=== PATIENT | male | born 1930 | race Caucasian/White ===

== ENCOUNTER → 2016-10-10 | Outpatient (CLI) | payer OTHER, MEDICARE, MEDICAID ==
[~2016-10-10] MED LIST: ATIVAN1 MG PO; B121000 MCG/1 IM; BRIN10TA PO; BRIN20TA PO; CARDIZEM SR120 MG; CENTRUM SILVER1 TA2 PO; CIPROFLOXACIN500 M4 PO; CITALOPRAM20 MG PO; DOXYCYCLINE100 M3 PO; DUONEB 3 MG/3 ML3 M1 INH; FLOMAX0.4 MG; HYDROCODONE BIT1 T11 PO; IMDUR30 MG PO; K-DUR 20MEQ20 MEQ PO; KLOR-CON M2020 ME1 PO; LASIX20 MG PO; LASIX40 MG PO; LISINOPRIL20 MG PO; LOPRESSOR25 MG PO; MEGACE400 MG/10 PO; METOPROLOL TART50 M1 PO; MOISTURIZING LU15 ML OP; PROTONIX40 MG PO; SERTRALINE100 MG; SERTRALINE50 MG PO; SODIUM BICARBO650 MG PO; SPS15 GM/60 M PO; TERAZOSIN HCL2 MG PO; TRAZODONE50 MG; VITAMIN C500 MG PO; VITAMIN D50000 I3 PO; [UNRECOGNIZED DRUG - OTHER] TP
== END ==
LOC: US 12:33
DX: N19 Unspecified kidney failure (principal); N28.1 Cyst of kidney, acquired

== ENCOUNTER 2016-12-28 12:37 | Inpatient (IN) | payer OTHER, MEDICARE, MEDICAID ==
[~2016-12-28] VITALS: Ht 187.9 cm; Wt 107.7 kg
[~2016-12-28 12:37] MED LIST changes: -FLOMAX0.4 MG; +FLOMAX0.4 MG PO
[2016-12-28 12:56] VITALS: BP 129/62
[2016-12-28 13:06] LABS: BASO % 0.2 % (0.0-1.0); EOS # 0.2 10*3/uL (0.0-0.4); EOS % 2.4 % (1.0-4.0); HEMATOCRIT 39.8 % (42.0-52.0); HEMOGLOBIN 12.6 g/dl (14.0-18.0); IG # 0.1 10*3/uL (0.0-0.1); LYMPH # 1.2 10*3/uL (1.3-4.4); LYMPH % 12.8 % (27.0-41.0); MEAN CELL VOLUME 93.9 fl (80.0-94.0); MEAN CORPUSCULAR HGB 29.7 pg (27.0-31.0); MEAN CORPUSCULAR HGB CONC 31.7 g/dl (33.0-37.0); MEAN PLATELET VOLUME 10.5 fl (9.6-12.3); MONO # 0.8 10*3/uL (0.1-1.0); MONO % 8.4 % (3.0-9.0); NEUT # 6.8 10*3/uL (2.3-7.9); NEUT % 75.2 % (47.0-73.0); PLATELET COUNT AUTOMATED 158 10*3/uL (130-400); RED BLOOD COUNT 4.24 10*6/uL (4.50-5.90); RED CELL DISTRI WIDTH 14.4 % (0-14.5)
[2016-12-28 13:14] LABS: PROTHROMBIN TIME 10.7 SECONDS (9.0-12.4)
[2016-12-28 13:21] LABS: ALKALINE PHOSPHATASE 191 U/L (45-117); BILIRUBIN, TOTAL 0.4 mg/dl (0.2-1.0); BUN 51 mg/dl (7-24); C-REACTIVE PROTEIN 3.49 MG/DL (0-0.3); CARBON DIOXIDE 22 mmol/L (21-32); CHLORIDE 109 mmol/L (98-107); CPK 21 U/L (39-308); EST GLOM FILT AFRICAN AMERICAN 22 ml/min; GLUCOSE 119 mg/dL (65-99); MAGNESIUM 2.7 mg/dL (1.5-2.1); POTASSIUM 5.2 mmol/L (3.5-5.1); SGOT/AST 12 IU/L (3-35); SGPT/ALT 15 U/L (12-78); SODIUM 141 mmol/L (136-145)
[2016-12-28 13:22] LABS: CKMB < 0.5 ng/ml (0.5-3.6); TROPONIN I < 0.015 ng/ml (<0.045)
[2016-12-28 13:53] VITALS: BP 137/89
[2016-12-28 15:03] LABS: LA>2 REFLEX 2 HR DRAW NOW
[2016-12-28 15:06] VITALS: BP 121/85
[2016-12-28 18:35] VITALS: BP 159/66
[2016-12-28 18:56] LABS: CKMB 0.6 ng/ml (0.5-3.6)
[2016-12-28 20:00] VITALS: BP 136/72
[2016-12-29] VITALS: BP 101/58; BP 128/60
[2016-12-29 06:28] LABS: BASO % 0.1 % (0.0-1.0); EOS # 0.2 10*3/uL (0.0-0.4); EOS % 2.4 % (1.0-4.0); HEMATOCRIT 38.6 % (42.0-52.0); HEMOGLOBIN 12.3 g/dl (14.0-18.0); IG # 0.1 10*3/uL (0.0-0.1); LYMPH # 0.4 10*3/uL (1.3-4.4); LYMPH % 5.3 % (27.0-41.0); MEAN CELL VOLUME 93.2 fl (80.0-94.0); MEAN CORPUSCULAR HGB 29.7 pg (27.0-31.0); MEAN CORPUSCULAR HGB CONC 31.9 g/dl (33.0-37.0); MEAN PLATELET VOLUME 10.4 fl (9.6-12.3); MONO # 0.7 10*3/uL (0.1-1.0); MONO % 8.3 % (3.0-9.0); NEUT # 6.9 10*3/uL (2.3-7.9); NEUT % 83.2 % (47.0-73.0); PLATELET COUNT AUTOMATED 137 10*3/uL (130-400); RED BLOOD COUNT 4.14 10*6/uL (4.50-5.90); RED CELL DISTRI WIDTH 14.4 % (0-14.5); WHITE BLOOD COUNT 8.3 10*3/uL (4.8-10.8)
[2016-12-29 06:38] LABS: CKMB 3.5 ng/ml (0.5-3.6)
[2016-12-29 06:39] LABS: HEMOGLOBIN A1c 5.6 % (4.8-5.6)
[2016-12-29 06:56] LABS: FREE T4 0.89 ng/dl (0.76-1.46); PHOSPHOROUS 3.1 mg/dL (2.5-4.9); POTASSIUM 5.3 mmol/L (3.5-5.1)
[2016-12-29 06:58] LABS: PROTHROMBIN TIME 11.1 SECONDS (9.0-12.4)
[2016-12-29 07:02] LABS: THYROID STIM HORMONE (HS) 1.38 uIU/ml (0.358-4.75)
[2016-12-29 07:20] LABS: FOLIC ACID 18.92 ng/mL (>5.38); VITAMIN D, 25-HYDROXY 37.2 ng/mL (30-100)
[2016-12-29 08:00] VITALS: BP 152/86
[2016-12-29 12:00] VITALS: BP 145/71
[2016-12-29 13:27] LABS: BILIRUBIN NEGATIVE (NEGATIVE); BLOOD 1+ (NEGATIVE); CLARITY CLEAR (CLEAR); COLOR YELLOW (YELLOW); GLUCOSE NEGATIVE (NEGATIVE); KETONE NEGATIVE (NEGATIVE); LEUKO ESTERASE NEGATIVE (NEGATIVE); NITRITE NEGATIVE (NEGATIVE); PH 6.5 (5.0-9.0); PROTEIN NEGATIVE (NEGATIVE); SPECIFIC GRAVITY <= 1.005 (1.005-1.030); UROBILINOGEN 0.2 E.U./dl (0.2-1.0)
[2016-12-29 13:50] LABS: BACTERIA 2+
[2016-12-29] MEDS ORDERED: K-TAB20 MEQ PO (14:33)
[2016-12-29] MEDS ORDERED: LASIX40 MG PO (14:34)
[2016-12-29] MEDS ORDERED: SERTRALINE HYD100 MG PO (14:37)
[2016-12-29] MEDS ORDERED: WELLBUTRIN SR100 MG PO (14:38)
[2016-12-29 16:00] VITALS: BP 142/72
[2016-12-29 20:47] VITALS: BP 154/62
[2016-12-30] VITALS: BP 162/79
[2016-12-30 07:05] LABS: BASO % 0.3 % (0.0-1.0); EOS # 0.2 10*3/uL (0.0-0.4); EOS % 3.1 % (1.0-4.0); HEMATOCRIT 36.5 % (42.0-52.0); HEMOGLOBIN 11.7 g/dl (14.0-18.0); IG # 0.1 10*3/uL (0.0-0.1); LYMPH # 0.6 10*3/uL (1.3-4.4); LYMPH % 7.9 % (27.0-41.0); MEAN CELL VOLUME 91.7 fl (80.0-94.0); MEAN CORPUSCULAR HGB 29.4 pg (27.0-31.0); MEAN CORPUSCULAR HGB CONC 32.1 g/dl (33.0-37.0); MEAN PLATELET VOLUME 10.4 fl (9.6-12.3); MONO # 0.7 10*3/uL (0.1-1.0); MONO % 8.9 % (3.0-9.0); NEUT # 6.1 10*3/uL (2.3-7.9); NEUT % 78.9 % (47.0-73.0); PLATELET COUNT AUTOMATED 129 10*3/uL (130-400); RED BLOOD COUNT 3.98 10*6/uL (4.50-5.90); RED CELL DISTRI WIDTH 14.3 % (0-14.5); WHITE BLOOD COUNT 7.7 10*3/uL (4.8-10.8)
[2016-12-30 07:28] LABS: ALBUMIN 2.6 gm/dl (3.1-4.5); MAGNESIUM 2.1 mg/dL (1.5-2.1); PHOSPHOROUS 2.8 mg/dL (2.5-4.9)
[2016-12-30 08:00] VITALS: BP 142/59
[2016-12-30 12:00] VITALS: BP 158/92
[2016-12-30 16:00] VITALS: BP 160/79
[2016-12-30 20:00] VITALS: BP 129/67
[2016-12-31] VITALS: BP 110/45; BP 122/68
[2016-12-31 06:00] LABS: BASO % 0.1 % (0.0-1.0); EOS # 0.4 10*3/uL (0.0-0.4); EOS % 4.7 % (1.0-4.0); HEMATOCRIT 37.9 % (42.0-52.0); IG # 0.1 10*3/uL (0.0-0.1); LYMPH # 0.7 10*3/uL (1.3-4.4); LYMPH % 8.3 % (27.0-41.0); MEAN CELL VOLUME 94.5 fl (80.0-94.0); MEAN CORPUSCULAR HGB 29.9 pg (27.0-31.0); MEAN CORPUSCULAR HGB CONC 31.7 g/dl (33.0-37.0); MEAN PLATELET VOLUME 10.6 fl (9.6-12.3); MONO # 0.8 10*3/uL (0.1-1.0); MONO % 9.6 % (3.0-9.0); NEUT % 76.3 % (47.0-73.0); PLATELET COUNT AUTOMATED 144 10*3/uL (130-400); RED BLOOD COUNT 4.01 10*6/uL (4.50-5.90); RED CELL DISTRI WIDTH 14.2 % (0-14.5); WHITE BLOOD COUNT 7.8 10*3/uL (4.8-10.8)
[2016-12-31 06:26] LABS: ALBUMIN 2.4 gm/dl (3.1-4.5); MAGNESIUM 2.1 mg/dL (1.5-2.1); PHOSPHOROUS 2.9 mg/dL (2.5-4.9); POTASSIUM 5.2 mmol/L (3.5-5.1)
[2016-12-31 08:00] VITALS: BP 166/72
[2016-12-31 12:00] VITALS: BP 156/78
[2016-12-31 16:00] VITALS: BP 117/61
[2016-12-31 20:00] VITALS: BP 121/56
[2017-01-01] VITALS: BP 151/64
[2017-01-01 06:25] LABS: BASO % 0.2 % (0.0-1.0); EOS # 0.4 10*3/uL (0.0-0.4); EOS % 4.2 % (1.0-4.0); HEMATOCRIT 38.6 % (42.0-52.0); HEMOGLOBIN 12.2 g/dl (14.0-18.0); IG # 0.1 10*3/uL (0.0-0.1); LYMPH % 9.8 % (27.0-41.0); MEAN CELL VOLUME 92.6 fl (80.0-94.0); MEAN CORPUSCULAR HGB 29.3 pg (27.0-31.0); MEAN CORPUSCULAR HGB CONC 31.6 g/dl (33.0-37.0); MEAN PLATELET VOLUME 10.7 fl (9.6-12.3); MONO % 10.1 % (3.0-9.0); NEUT # 7.5 10*3/uL (2.3-7.9); NEUT % 74.7 % (47.0-73.0); PLATELET COUNT AUTOMATED 160 10*3/uL (130-400); RED BLOOD COUNT 4.17 10*6/uL (4.50-5.90); RED CELL DISTRI WIDTH 14.2 % (0-14.5)
[2017-01-01 06:55] LABS: ALBUMIN 2.5 gm/dl (3.1-4.5); MAGNESIUM 2.1 mg/dL (1.5-2.1); PHOSPHOROUS 2.8 mg/dL (2.5-4.9)
[2017-01-01 07:07] LABS: POTASSIUM 4.3 mmol/L (3.5-5.1)
[2017-01-01 08:20] VITALS: BP 164/82
[2017-01-01 12:08] VITALS: BP 141/88
[2017-01-01 16:00] VITALS: BP 163/69
[2017-01-01 20:00] VITALS: BP 150/76
[2017-01-02] VITALS: BP 139/70
[2017-01-02 06:46] LABS: BASO % 0.4 % (0.0-1.0); EOS # 0.2 10*3/uL (0.0-0.4); EOS % 2.1 % (1.0-4.0); HEMATOCRIT 39.7 % (42.0-52.0); HEMOGLOBIN 12.7 g/dl (14.0-18.0); IG # 0.1 10*3/uL (0.0-0.1); LYMPH # 0.7 10*3/uL (1.3-4.4); LYMPH % 6.5 % (27.0-41.0); MEAN CELL VOLUME 92.5 fl (80.0-94.0); MEAN CORPUSCULAR HGB 29.6 pg (27.0-31.0); MEAN PLATELET VOLUME 10.6 fl (9.6-12.3); MONO % 9.4 % (3.0-9.0); NEUT # 8.3 10*3/uL (2.3-7.9); NEUT % 80.6 % (47.0-73.0); PLATELET COUNT AUTOMATED 161 10*3/uL (130-400); RED BLOOD COUNT 4.29 10*6/uL (4.50-5.90); WHITE BLOOD COUNT 10.3 10*3/uL (4.8-10.8)
[2017-01-02 06:59] LABS: POTASSIUM 4.8 mmol/L (3.5-5.1)
[2017-01-02 08:00] VITALS: BP 170/76
[2017-01-02 12:00] VITALS: BP 149/64
[2017-01-02 12:32] LABS: VITAMIN D, 25-HYDROXY 30.3 ng/mL (30-100)
[2017-01-02 15:11] LABS: ABG BASE EXCESS -2.2 mmol/L (-2.0-2.0); ABG CO2 CONTENT 23.4 mmol/L (23-27); ABG HCO3 22.2 mmol/l (22-26); ABG TEMPERATURE 97.6 F (98.0-99.0); ARTERIAL BLOOD GAS PH 7.38 (7.35-7.45); ARTERIAL BLOOD GAS PO2 80.6 mmHg (80-90)
[2017-01-02 16:00] VITALS: BP 128/75
[2017-01-02 20:00] VITALS: BP 140/60
[2017-01-03] VITALS: BP 128/62
[2017-01-03 08:00] VITALS: BP 142/56
[2017-01-03 12:00] VITALS: BP 140/68
[2017-01-03 16:00] VITALS: BP 144/66
[2017-01-03 20:00] VITALS: BP 140/60
[2017-01-04] VITALS: BP 122/78
[2017-01-04 07:07] LABS: ALBUMIN 2.4 gm/dl (3.1-4.5); BILIRUBIN, TOTAL 0.3 mg/dl (0.2-1.0); MAGNESIUM 2.5 mg/dL (1.5-2.1); PHOSPHOROUS 3.6 mg/dL (2.5-4.9); TOTAL PROTEIN 7.3 gm/dL (6.4-8.2)
[2017-01-04 08:00] VITALS: BP 122/52
[2017-01-04] MEDS ORDERED: LEVAQUIN750 M1 PO (10:58)
[2017-01-04 12:00] VITALS: BP 127/76
== END 2017-01-04 17:26 | disposition home health service (06) | DRG 682 ==
LOC: ED 12:37 → 5E 15:16 → EDHOLD 15:16 → 5E 15:22
PROVIDERS: Emergency Medicine; Family Medicine; Internal Medicine; Internal Medicine Nephrology; Psychiatry & Neurology Psychiatry
DX: N17.0 Acute kidney failure with tubular necrosis (principal); E43 Unspecified severe protein-calorie malnutrition; G93.40 Encephalopathy, unspecified; E87.2 Acidosis; E87.0 Hyperosmolality and hypernatremia; D69.6 Thrombocytopenia, unspecified; I13.0 Hypertensive heart and chronic kidney disease with heart failure and stage 1 through stage 4 chronic kidney disease, or unspecified chronic kidney disease; I50.32 Chronic diastolic (congestive) heart failure; L03.116 Cellulitis of left lower limb; L03.115 Cellulitis of right lower limb; D47.2 Monoclonal gammopathy; N18.4 Chronic kidney disease, stage 4 (severe); F41.9 Anxiety disorder, unspecified; H54.0 Blindness, both eyes; I77.9 Disorder of arteries and arterioles, unspecified; N28.1 Cyst of kidney, acquired; H70.90 Unspecified mastoiditis, unspecified ear; F32.9 Major depressive disorder, single episode, unspecified; E87.5 Hyperkalemia; E83.41 Hypermagnesemia; D63.1 Anemia in chronic kidney disease; I73.9 Peripheral vascular disease, unspecified; E87.8 Other disorders of electrolyte and fluid balance, not elsewhere classified; E66.09 Other obesity due to excess calories; Z68.38 Body mass index [BMI] 38.0-38.9, adult; Z87.891 Personal history of nicotine dependence; Z88.0 Allergy status to penicillin; Z83.6 Family history of other diseases of the respiratory system; Z82.49 Family history of ischemic heart disease and other diseases of the circulatory system; N40.0 Benign prostatic hyperplasia without lower urinary tract symptoms; Z98.890 Other specified postprocedural states

== ENCOUNTER 2017-01-04 15:40 | Inpatient (IN) | payer OTHER, MEDICARE, MEDICAID ==
[~2017-01-04] VITALS: Ht 187.9 cm; Wt 112.5 kg
--- NOTE | ~2017-01-04 | PR ---
[place], [place] PROGRESS NOTE NAME: CHIKI MARR UNIT #: [id number] ROOM: 317 DOCTOR: ALY MURGUIA DPM BIRTHDATE: [birth year] DOS: 01/10/2017 SUBJECTIVE: The patient was seen for followup of ulcerations dorsal bilateral foot and medial right leg. OBJECTIVE: The ulcerations are showing signs of improvement. No signs of infection or complication, much improved since Monday. ASSESSMENT: Venous insufficiency, ulcerations of the right medial leg, ulcerations dorsal bilateral foot. PLAN: Evaluation and management. Continue local wound care and we will reassess next week. ALY MURGUIA DPM CM:JOON 1213 01 ALY MURGUIA DPM 01/10/172301 interface
--- NOTE | ~2017-01-04 | PR ---
[place], [place] PROGRESS NOTE NAME: CHIKI MARR UNIT #: [id number] ROOM: 317 DOCTOR: CHIKI BRIONES MD BIRTHDATE: [birth year] DOS: 01/08/2017 CHIEF COMPLAINT: "My back really hurts; the pain is just unbearable at times." SUMMARY OF THE VISIT: The patient was interviewed in the dining area where he sat finishing his breakfast. He stopped and engaged in conversation. He was much more talkative this morning and did state that he feels miserable because his pain is unbearable. He reports he is not getting any relief from it and rates it as a 10 on a scale of 1-10 with 10 being the worst. He also notes that his sleep has been somewhat disturbed because of it. He is willing to allow me to adjust medicines accordingly to get him some pain relief. MENTAL STATUS: He is alert and oriented to person, place and very approximate to time. Mood still seems depressed with some anxious overtones. There is no maria alejandra or hypomania. There are no auditory or visual hallucinations. No delusions or paranoia. Memory for the most part is intact. PLAN: I will go ahead and increase his Cymbalta from 20 mg daily to 30 mg daily, may need to target further adjustment when he as an outpatient. We will engage in individual and johnson milieu activity with the ultimate plan to return home or to the least restrictive environment when psychiatrically stable. CHIKI BRIONES MD CM:PNTRANS [id number] CHIKI BRIONES MD 01/08/17 1029 interface
--- NOTE | ~2017-01-04 | DS ---
[place], [place] DISCHARGE SUMMARY [id number] UN[facility] #: [id number] ROOM: 317 DOCTOR: CARISSA RASCON BIRTHDATE: [birth year] DOS: 01/12/2017 CHIEF COMPLAINT: "I am going home." HISTORY OF PRESENT ILLNESS: He is an 86-year-old white male who came to ____ originally cellulitis and acute on chronic renal failure. Nephrology and Podiatry consulted on him and he then ____ so nothing acute. He did have ____ mastoiditis. He was treated medically with Levaquin for cellulitis, which was just every 4-8 hours due to his renal failure. PAST MEDICAL HISTORY: Anemia, anxiety. He is blind. He has BPH, chronic renal failure, depression, CHF, hypertension, protein-calorie malnutrition, and he did have thrombocytopenia, ____, which resolved while he was there. SUMMARY OF HOSPITAL STAY: He was transferred to the Behavioral Health Unit where he initially required some IV fluid due to continued confusion and occasional irritable and agitated activity. He was anxious and depressed when he came to the unit because of being ____ unit. While in the unit, his Cymbalta and Risperdal were maintained also and a multivitamin was added since he was anemic. His Cymbalta was titrated in order to treat not only his depression, but his chronic back pain. Podiatry was consulted as well due severely to be really mycotic nails and poor lower extremity circulation. While he was on the unit, he was occasionally sexually inappropriate, that behavior had improved at the time of discharge. He still is a little irritable, grumpy, but overall he has been stable for at least the past 3 days. We had just done a little, a few changes on his medications and got him some one-on-one counseling with the social sciences research scientist to help him deal with the fact that he is going to have to go for rehab stay prior to going home. He was sleeping well, had a good appetite. MENTAL STATUS ON DISCHARGE: He is alert and oriented. He had no delusions, hallucinations or psychosis. No maria alejandra or hypomania. DISPOSITION: He was discharged long-term care facility for at least a 30-day rehab stay prior to returning home or he may stay in the intermediate project manager in the facility. His scripts were printed and sent with him. He is discharged in psychiatrically stable condition. [place], [place] DISCHARGE SUMMARY NAME: CHIKI MARR UNIT #: [id number] ROOM: [facility] DOCTOR: CARISSA RASCON BIRTHDATE: [birth year] Carissa Rascon NP CM:DISCHARG [id number] CARISSA RASCON 01/12/172223 interface
--- NOTE | ~2017-01-04 | PR ---
[place], [place] PROGRESS NOTE NAME: CHIKI MARR UNIT #: [id number] ROOM: 317 DOCTOR: CHIKI BRIONES MD BIRTHDATE: [birth year] DOS: 01/07/2017 CHIEF COMPLAINT: "Morning." SUMMARY OF THE VISIT: The patient was interviewed as he rested in bed. He was rather hard to awake and part of this is because he is so hard of hearing. He did engage in brief superficial conversation. Again, conversation is limited due to his sensory losses. He was pleasant and bright however, and offered no complaints. There was no agitation. There was no mood lability. MENTAL STATUS: He is alert and oriented to person, place and very approximate to time. Mood does seem to be relatively euthymic. Affect is appropriate. There are no symptoms of hypomania or maria alejandra. There are no overt auditory or visual hallucinations. No delusions are expressed. Short term memory has some mild gaps, otherwise he is intact. PLAN: I will go ahead and maintain his current dose of Cymbalta and Risperdal. I will add a multivitamin with mineral is given the fact that he has anemia and I will Primo to does nutritional status. We will engage in individual and johnson milieu activity, returning home when psychiatrically stable. CHIKI BRIONES MD CM:PNTRANS 0850 [id number] CHIKI BRIONES MD 01/07/17 1010 interface
--- NOTE | ~2017-01-04 | CON ---
[place], [place] REPORT OF CONSULTATION NAME: CHIKI MARR UNIT #: [id number] ROOM: 317 DOCTOR: ALY MURGUIA DPM BIRTHDATE: [birth year] DOS: 01/07/2017 HISTORY OF PRESENT ILLNESS: The patient was seen previously in the hospital for cellulitis of both lower legs with ulcerations and venous insufficiency. PAST MEDICAL HISTORY: The patient has a past medical history of anemia with chronic kidney disease, anxiety, blindness, benign prostatic hyperplasia , chronic renal failure stage 3 , chronic depression, diastolic CHF, chronic hypertension, chronic obesity, protein calorie malnutrition and severe thrombocytopenia. PAST SURGICAL HISTORY: History of back surgery and colonoscopy. SOCIAL HISTORY: Former smoker. FAMILY HISTORY: Father at age 80 of emphysema of lung. Mother , cause unknown. ALLERGIES: PENICILLIN. LOWER EXTREMITY EXAMINATION: Diminished pedal pulses, bilateral edema, venous insufficiency, venous stasis, bilateral lower leg improving from previous exam. Superficial ulcerations to the medial right lower leg and dorsal bilateral foot, improving with local wound care and Tubigrip. ASSESSMENT: Venous ulceration, right medial leg, edema, venous insufficiency, ulcerations dorsal bilateral foot. PLAN: Evaluation and management. Continue local wound care, Bactroban and Adaptic with a Tubigrip daily and we will follow the patient for continued care. ALY MURGUIA DPM CM:CONSTR:REPORT OF CONSULTATION 1122 01/07/17 1213 interface
[~2017-01-04 15:40] MED LIST changes: +K-TAB20 MEQ PO; +LEVAQUIN750 M1 PO; +SERTRALINE HYD100 MG PO; +WELLBUTRIN SR100 MG PO
[2017-01-04 18:26] VITALS: BP 126/69
[2017-01-04 20:12] VITALS: BP 138/66
[2017-01-05 07:56] LABS: BASO # 0.1 10*3/uL (0.0-0.1); BASO % 0.6 % (0.0-1.0); EOS # 0.4 10*3/uL (0.0-0.4); EOS % 4.9 % (1.0-4.0); HEMATOCRIT 39.9 % (42.0-52.0); HEMOGLOBIN 12.5 g/dl (14.0-18.0); IG # 0.1 10*3/uL (0.0-0.1); LYMPH # 1.2 10*3/uL (1.3-4.4); LYMPH % 13.5 % (27.0-41.0); MEAN CELL VOLUME 93.9 fl (80.0-94.0); MEAN CORPUSCULAR HGB 29.4 pg (27.0-31.0); MEAN CORPUSCULAR HGB CONC 31.3 g/dl (33.0-37.0); MEAN PLATELET VOLUME 10.8 fl (9.6-12.3); MONO # 0.8 10*3/uL (0.1-1.0); MONO % 8.9 % (3.0-9.0); NEUT # 6.2 10*3/uL (2.3-7.9); NEUT % 70.7 % (47.0-73.0); PLATELET COUNT AUTOMATED 176 10*3/uL (130-400); RED BLOOD COUNT 4.25 10*6/uL (4.50-5.90); RED CELL DISTRI WIDTH 14.2 % (0-14.5); WHITE BLOOD COUNT 8.8 10*3/uL (4.8-10.8)
[2017-01-05 08:05] LABS: ALBUMIN 2.5 gm/dl (3.1-4.5); BILIRUBIN, TOTAL 0.3 mg/dl (0.2-1.0); TOTAL PROTEIN 7.9 gm/dL (6.4-8.2)
[2017-01-05 08:09] VITALS: BP 150/64
[2017-01-05 08:43] LABS: VITAMIN D, 25-HYDROXY 34.5 ng/mL (30-100)
[2017-01-05 08:44] LABS: FOLIC ACID 16.36 ng/mL (>5.38)
[2017-01-05 19:43] VITALS: BP 149/84
[2017-01-06 05:50] LABS: BASO % 0.5 % (0.0-1.0); EOS # 0.4 10*3/uL (0.0-0.4); HEMATOCRIT 39.6 % (42.0-52.0); HEMOGLOBIN 12.5 g/dl (14.0-18.0); IG # 0.1 10*3/uL (0.0-0.1); LYMPH % 11.4 % (27.0-41.0); MEAN CELL VOLUME 93.4 fl (80.0-94.0); MEAN CORPUSCULAR HGB 29.5 pg (27.0-31.0); MEAN CORPUSCULAR HGB CONC 31.6 g/dl (33.0-37.0); MONO # 0.9 10*3/uL (0.1-1.0); MONO % 9.7 % (3.0-9.0); NEUT # 6.3 10*3/uL (2.3-7.9); NEUT % 71.8 % (47.0-73.0); PLATELET COUNT AUTOMATED 171 10*3/uL (130-400); RED BLOOD COUNT 4.24 10*6/uL (4.50-5.90); RED CELL DISTRI WIDTH 13.9 % (0-14.5); WHITE BLOOD COUNT 8.8 10*3/uL (4.8-10.8)
[2017-01-06 06:08] LABS: POTASSIUM 4.3 mmol/L (3.5-5.1)
[2017-01-06 08:12] VITALS: BP 154/77
[2017-01-06 20:00] VITALS: BP 141/78
[2017-01-07 07:51] VITALS: BP 134/84
[2017-01-07 19:55] VITALS: BP 142/61
[2017-01-08 07:51] VITALS: BP 116/60
[2017-01-08 20:18] VITALS: BP 131/70
[2017-01-09 08:14] VITALS: BP 136/61
[2017-01-09 20:00] VITALS: BP 125/68
[2017-01-10 08:12] VITALS: BP 103/58
[2017-01-10 20:24] VITALS: BP 124/68
[2017-01-11 11:03] VITALS: BP 125/66
[2017-01-11 20:25] VITALS: BP 122/55
[2017-01-12 08:00] VITALS: BP 112/64
[2017-01-12] MEDS ORDERED: RISPERDAL0.5 MG PO (12:15)
[2017-01-12] MEDS ORDERED: CYMBALTA20 M1 PO (12:16)
== END 2017-01-12 14:07 | disposition other institution (70) | DRG 885 ==
LOC: 3N 15:40
PROVIDERS: Internal Medicine Hospice and Palliative Medicine; Psychiatry & Neurology Psychiatry
DX: F23 Brief psychotic disorder (principal); E43 Unspecified severe protein-calorie malnutrition; N17.9 Acute kidney failure, unspecified; I50.32 Chronic diastolic (congestive) heart failure; I13.0 Hypertensive heart and chronic kidney disease with heart failure and stage 1 through stage 4 chronic kidney disease, or unspecified chronic kidney disease; L03.115 Cellulitis of right lower limb; L03.116 Cellulitis of left lower limb; H70.92 Unspecified mastoiditis, left ear; N18.3 Chronic kidney disease, stage 3 (moderate); F29 Unspecified psychosis not due to a substance or known physiological condition; F41.1 Generalized anxiety disorder; D63.1 Anemia in chronic kidney disease; N40.0 Benign prostatic hyperplasia without lower urinary tract symptoms; L97.519 Non-pressure chronic ulcer of other part of right foot with unspecified severity; L97.529 Non-pressure chronic ulcer of other part of left foot with unspecified severity; I87.2 Venous insufficiency (chronic) (peripheral); F32.9 Major depressive disorder, single episode, unspecified; E66.09 Other obesity due to excess calories; M54.5 Low back pain; Z88.0 Allergy status to penicillin; Z87.891 Personal history of nicotine dependence; Z80.1 Family history of malignant neoplasm of trachea, bronchus and lung; Z79.2 Long term (current) use of antibiotics; Z79.899 Other long term (current) drug therapy; Z68.31 Body mass index [BMI] 31.0-31.9, adult

== ENCOUNTER → 2017-05-19 | Day surgery (SDC) | payer MEDICARE, MEDICAID ==
[~2017-05-19] MED LIST changes: +CYMBALTA20 M1 PO; +RISPERDAL0.5 MG PO
--- NOTE | ~2017-05-19 | O ---
[place], [place] OPERATIVE NOTE NAME: CHIKI MARR UNIT #: [id number] ROOM: DOCTOR: DIMITRIOS MONTEJO MD BIRTHDATE: [birth year] DOS: 05/19/2017 PROCEDURE: Gastroendoscopy. The patient has presented with chief complaint of anemia, epigastric distress, diarrhea, abdominal pain. Today's procedure part of investigation is panendoscopy. PREMEDICATION: Versed and Diprivan. SCOPE: Olympus forward-viewing gastroscope Q10 video. REPORT: After putting the patient in left lateral position and application of lubricant to the scope, the scope was introduced. Thereafter, under direct visualization, advanced through the length of esophagus without difficulty. Small hiatal hernia was noticed. Gastric pouch was entered. Multiple antral erosions identified with some degraded blood in the gastric pouch noticed. Duodenum expresses multiple small and medium size ulcerations with necrotic surface in the first, second and third part of duodenum. Photographed biopsy obtained. The patient extubated, tolerated procedure well. IMPRESSION: Multi duodenal ulcers as identified above, multi erosion spots in the antrum, presence of blood in the stomach. Definitely, this patient has lost blood from the upper GI findings. The patient is going to be started on Protonix 40 mg 1 daily, which is going to manage the above and hopefully as well some of his diarrhea if it is secondary to hyperacidity. Thank you very much indeed. DIMITRIOS MONTEJO MD CM:OPRECORD:OPERATIVE NOTE 1204 141 DIMITRIOS MONTEJO MD 05/19/17 1417 interface
--- NOTE | ~2017-05-19 | O ---
[place], [place] OPERATIVE NOTE NAME: CHIKI MARR UNIT #: [id number] ROOM: DOCTOR: DIMITRIOS MONTEJO MD BIRTHDATE: [birth year] DOS: 05/19/2017 HISTORY OF PRESENT ILLNESS: This is an 86-year-old patient who presented with anorexia, diarrhea, anemia, undergoing investigation, on Lomotil. ALLERGIES: No known medication. FAMILY HISTORY: Noncontributory. PAST SURGICAL HISTORY: Lower back. PAST MEDICAL HISTORY: Hypertension, renal insufficiency, BPH, and schizo disorder. SOCIAL HISTORY: Nonsmoker, nonalcohol consumer. PROCEDURE: Today's procedure part of investigation is colonoscopy plus biopsy. PREMEDICATION: Versed and Diprivan. SCOPE: Olympus folding colonoscope 10L video. REPORT: After putting the patient in left lateral position and application of lubricant to rectal pouch and digital examination, scope was introduced. Thereafter, under direct laparoscopic vision advanced through the length of colon without difficulty. Base of the cecum explored, appendiceal orifice identified, and ileocecal valve was defined. Scope was withdrawn. Moderate diverticulosis, particularly left side of the colon appreciated. Segmental colitis at approximately sigmoid colon approximate length of 5 cm was noticed. This is nonspecific; however, biopsy was obtained after photographic series has been obtained. The patient extubated, tolerated procedure well. IMPRESSION: Diverticulosis, nonspecific segmental colitis of sigmoid colon, status post biopsy. PLAN AND DISCUSSION: Supportive management. Furthermore, we are going to proceed with panendoscopy. [place], [place] OPERATIVE NOTE NAME: CHIKI MARR UNIT #: [id number] ROOM: DOCTOR: DIMITRIOS MONTEJO MD BIRTHDATE: [birth year] DIMITRIOS MONTEJO MD CM:OPRECORD:OPERATIVE NOTE 1204 1413 DIMITRIOS MONTEJO MD 05/19/17 1414 interface
[2017-05-19 10:49] VITALS: BP 129/78
[2017-05-19 11:37] VITALS: BP 127/80
[2017-05-19 11:55] VITALS: BP 118/67
[2017-05-19 12:10] VITALS: BP 114/64
== END | disposition home or self-care (01) ==
LOC: SDC 05-16 08:45
DX: K51.80 Other ulcerative colitis without complications (principal); K26.9 Duodenal ulcer, unspecified as acute or chronic, without hemorrhage or perforation; K57.30 Diverticulosis of large intestine without perforation or abscess without bleeding; I12.9 Hypertensive chronic kidney disease with stage 1 through stage 4 chronic kidney disease, or unspecified chronic kidney disease; N18.3 Chronic kidney disease, stage 3 (moderate); I73.9 Peripheral vascular disease, unspecified; Z79.899 Other long term (current) drug therapy; Z88.0 Allergy status to penicillin; Z88.8 Allergy status to other drugs, medicaments and biological substances; F32.9 Major depressive disorder, single episode, unspecified; Z87.891 Personal history of nicotine dependence; Z82.49 Family history of ischemic heart disease and other diseases of the circulatory system

== ENCOUNTER 2017-10-14 18:55 | Inpatient (IN) | payer MEDICARE ==
[~2017-10-14] VITALS: Ht 187.9 cm; Wt 85.3 kg
--- NOTE | ~2017-10-14 | CON ---
[place], [place] REPORT OF CONSULTATION NAME: CHIKI MARR UNIT #: [id number] ROOM: 508 DOCTOR: MAGALY MCCORD ED.D (JUVE) BIRTHDATE: [birth year] DOS: 10/23/2017 HISTORY OF PRESENT ILLNESS: The patient is an 86-year-old male referred by the hospitalist for competency evaluation. At the present time, this patient is on the 5th floor at [facility]. He is and I did speak with his , Delphine. He also has a son, Fredo. Both his and son reside at his home, but he has most recently been residing at [facility]. This patient's medical history is pertinent for benign prostatic hypertrophy, chronic kidney disease stage 3, dementia, hypertension and congestive heart failure. His medications include Cymbalta, folic acid, Depakote, Neurontin, Megace, Protonix, senna, and Flomax. This patient was awake, alert and oriented to person and place. He had no idea what year it was, and had no idea where he lived. He believes he lives in the hospital. He is extremely confused at this time and he has been confused for quite some time according to staff at [facility] and also his . He is clearly not competent to make informed healthcare decisions. His short and long-term memory are markedly impaired and he also has significant hearing deficits. DIAGNOSIS: Major neurocognitive disorder - Alzheimer's disease. RECOMMENDATIONS: In my opinion, all healthcare decisions should be made by his who is his next of kin. Thank you very much for this consult. MAGALY MCCORD ED.D CM:CONSTR:REPORT OF CONSULTATION 0844 10/23/17 1002 interface
--- NOTE | ~2017-10-14 | O ---
[place], [place] OPERATIVE NOTE NAME: CHIKI MARR UNIT #: [id number] ROOM: 508 DOCTOR: J[facility] BIRTHDATE: [birth year] DOS: 10/25/2017 GASTROENDOSCOPIC REPORT INDICATIONS: This is an 86-year-old patient who has presented with failure to thrive, difficulty swallowing, protein-calorie malnutrition. Basic blood work showed initial hypokalemia and hyperchloremic hypernatremia as well. Total calcium was low at 7.7, then we assessed comprehensive metabolic panel. We noticed that his albumin is 1.9 and his calcium is again 7.4. His total bilirubin is 0.12. AST, ALT within normal limits. He continued with hypokalemia as of today to 2.8 level. He requires potassium further supplementation. PAST MEDICAL HISTORY: Associated with anemia, chronic renal insufficiency, diastolic congestive failure, coronary artery disease, hypertension, borderline obesity, protein calorie malnutrition. PAST SURGICAL HISTORY: Back surgery. SOCIAL HISTORY: Nonsmoker at the present time; however, history of in the past. Nonalcohol consumer. FAMILY HISTORY: Noncontributory. ALLERGIES: PENICILLIN. MEDICATIONS: Reviewed. He is on folic acid and sulfasalazine as well, so he carries a history of colitis or degenerative joint disease as well. PROCEDURE: Today's procedure part of investigation is panendoscopy plus PEG tube placement. PREMEDICATION: Propofol. SCOPE: Olympus forward-viewing gastroscope Q10 video. REPORT: After putting the patient in supine position, scope was introduced. Thereafter, under direct visualization, advanced through the length of esophagus into gastric pouch into duodenal bulb. Anterior abdominal wall, aseptically prepped. A point in left leniency to Subxiphoid anatomy corresponding with his best transillumination sign. A 2 mL of Xylocaine was injected. Trocar was introduced in same spot. Guidewire was advanced through the center of which grasped with forceps orally pulled. Gastrostomy tube Nepalese 20 was anchored to it, orally pulled, recovered from the surface of the abdomen. Anchors placed, patency checked and tolerated the procedure well. IMPRESSION: Gastritis, status post PEG tube placement with intention for improvement of caloric intake and correction of protein-calorie malnutrition. We are going to start this patient on Glucerna at 20 mL per hour tonight and tomorrow morning we are going to increase it to 30 and next morning to 40 mL [place], [place] OPERATIVE NOTE NAME: CHIKI MARR UNIT #: [id number] ROOM: 508 DOCTOR: DIMITRIOS MONTEJO MD BIRTHDATE: [birth year] per hour and goal to 50 next day. He is going to get 40 mL ____. DICTATION ENDS HERE DIMITRIOS MONTEJO MD CM:OPRECORD:OPERATIVE NOTE [id number] DIMITRIOS MONTEJO MD 10/25/17 1740 interface
--- NOTE | ~2017-10-14 | CON ---
[place], [place] REPORT OF CONSULTATION NAME: CHIKI MARR UNIT #: [id number] ROOM: 508 DOCTOR: CHIKI BRIONES MD BIRTHDATE: [birth year] DOS: 10/25/2017 PSYCHIATRIC CONSULTATION CHIEF COMPLAINT: The patient was somnolent and unable to be aroused. HISTORY OF PRESENT ILLNESS: This is an 86-year-old white male who is a resident of [facility]. The patient was admitted due to ongoing medical issues and has been already seen by Dr. Demetrius Berrios, psychologist, who has deemed him incompetent to make decisions and has suggested that a guardianship be obtained. Per the nursing staff, the patient is extremely confused and at times very fearful. He has not been combative, agitated or labile. If approached the right way, he does redirect. He is very hard of hearing and is also visually impaired. My mental status exam is limited due to his overall level of somnolence. However, a review of the notes indicate that the patient has not been problematic. DIAGNOSES: Alzheimer dementia, major depression, recurrent. PLAN: Given the fact that he does already reside at a long-term care facility that I service, he has not been behaviorally challenged and does seem to be in a supportive living environment, I do think he can be discharged back to [facility] when medically stable. I can follow him there if need be, I do not see the need for [facility] admission. CHIKI BRIONES MD CM:CONSTR:REPORT OF CONSULTATION 10/25/17 0952 interface
[2017-10-14 18:56] VITALS: BP 106/66
[2017-10-14 19:06] VITALS: BP 106/66
[2017-10-14 19:36] VITALS: BP 123/66
[2017-10-14 19:49] LABS: BASO % 0.3 % (0.0-1.0); EOS # 0.2 10*3/uL (0.0-0.4); EOS % 1.6 % (1.0-4.0); HEMATOCRIT 35.6 % (42.0-52.0); HEMOGLOBIN 11.8 g/dl (14.0-18.0); LYMPH # 1.8 10*3/uL (1.3-4.4); LYMPH % 17.9 % (27.0-41.0); MEAN CELL VOLUME 98.3 fl (80.0-94.0); MEAN CORPUSCULAR HGB 32.6 pg (27.0-31.0); MEAN CORPUSCULAR HGB CONC 33.1 g/dl (33.0-37.0); MEAN PLATELET VOLUME 10.4 fl (9.6-12.3); MONO # 1.3 10*3/uL (0.1-1.0); MONO % 12.8 % (3.0-9.0); NEUT # 6.6 10*3/uL (2.3-7.9); NEUT % 66.5 % (47.0-73.0); PLATELET COUNT AUTOMATED 148 10*3/uL (130-400); RED BLOOD COUNT 3.62 10*6/uL (4.50-5.90); RED CELL DISTRI WIDTH 16.9 % (0-14.5); WHITE BLOOD COUNT 9.9 10*3/uL (4.8-10.8)
[2017-10-14 19:56] LABS: BILIRUBIN NEGATIVE (NEGATIVE); BLOOD TRACE-INTACT (NEGATIVE); CLARITY SL CLOUDY (CLEAR); COLOR YELLOW (YELLOW); GLUCOSE NEGATIVE (NEGATIVE); KETONE NEGATIVE (NEGATIVE); LEUKO ESTERASE 2+ (NEGATIVE); NITRITE POSITIVE (NEGATIVE); UROBILINOGEN 0.2 E.U./dl (0.2-1.0)
[2017-10-14 20:06] LABS: BACTERIA 3+; WBC TNTC wbc/hpf (0-5)
[2017-10-14 20:08] LABS: ALBUMIN 2.4 gm/dl (3.1-4.5); CREATININE 1.86 mg/dL (0.70-1.30); POTASSIUM 2.7 mmol/L (3.5-5.1); TROPONIN I 0.035 ng/ml (<0.045)
[2017-10-14 21:29] VITALS: BP 110/63
[2017-10-14] MEDS ORDERED: HYD T (21:35)
[2017-10-14] MEDS ORDERED: [UNRECOGNIZED DRUG - OTHER] T (21:35)
[2017-10-14] MEDS ORDERED: DEPAKOTE250 MG PO (21:36)
[2017-10-14] MEDS ORDERED: EXELON1 EACH PO (21:37)
[2017-10-14] MEDS ORDERED: METAMUCIL0.52 G1 PO (21:39)
[2017-10-14] MEDS ORDERED: SENNA8.6 MG PO (21:43)
[2017-10-14] MEDS ORDERED: NEURONTIN100 MG PO (21:44)
[2017-10-14] MEDS ORDERED: NON-ASPIRIN325 MG PO (21:45)
[2017-10-14] MEDS ORDERED: MEGACE 40400 MG/10 PO (21:47)
[2017-10-14] MEDS ORDERED: NATURE'S BLEND F1 MG PO (21:48)
[2017-10-14] MEDS ORDERED: AZULFIDINE ENT500 MG PO (21:49)
[2017-10-14] MEDS ORDERED: PROTONIX40 MG PO (21:50)
[2017-10-14] MEDS ORDERED: SODIUM BICARBO650 MG PO (21:51)
[2017-10-14] MEDS ORDERED: LOMOTIL 2.5-0.1 EACH PO (21:52)
[2017-10-14] MEDS ORDERED: MOM30 M1 PO (21:54)
[2017-10-14 21:55] VITALS: BP 120/54
[2017-10-14] MEDS ORDERED: METOPROLOL SUCC50 M1 PO (21:55)
[2017-10-14] MEDS ORDERED: FLOMAX0.4 MG PO (21:57)
[2017-10-14 22:15] VITALS: BP 106/66
[2017-10-15] MEDS ORDERED: RIVASTIGMINE T4.5 M1 PO (00:22)
[2017-10-15 06:12] LABS: BASO % 0.3 % (0.0-1.0); EOS # 0.2 10*3/uL (0.0-0.4); EOS % 2.5 % (1.0-4.0); HEMATOCRIT 31.5 % (42.0-52.0); HEMOGLOBIN 10.1 g/dl (14.0-18.0); LYMPH # 1.6 10*3/uL (1.3-4.4); LYMPH % 22.2 % (27.0-41.0); MEAN CORPUSCULAR HGB 32.4 pg (27.0-31.0); MEAN CORPUSCULAR HGB CONC 32.1 g/dl (33.0-37.0); MONO % 13.3 % (3.0-9.0); NEUT # 4.3 10*3/uL (2.3-7.9); NEUT % 60.9 % (47.0-73.0); PLATELET COUNT AUTOMATED 124 10*3/uL (130-400); RED BLOOD COUNT 3.12 10*6/uL (4.50-5.90); RED CELL DISTRI WIDTH 17.2 % (0-14.5); WHITE BLOOD COUNT 7.1 10*3/uL (4.8-10.8)
[2017-10-15 06:48] LABS: ALBUMIN 2.2 gm/dl (3.1-4.5); CREATININE 1.55 mg/dL (0.70-1.30); POTASSIUM 2.7 mmol/L (3.5-5.1)
[2017-10-15 06:55] LABS: FREE T4 0.92 ng/dl (0.76-1.46); THYROID STIM HORMONE (HS) 3.31 uIU/ml (0.358-4.75); TOTAL PROTEIN 5.3 gm/dL (6.4-8.2)
[2017-10-15 07:47] LABS: VITAMIN D, 25-HYDROXY 29.8 ng/mL (30-100)
[2017-10-15 08:00] VITALS: BP 130/58
[2017-10-15 12:00] VITALS: BP 134/62
[2017-10-15 16:00] VITALS: BP 128/72
[2017-10-16 06:10] LABS: BASO % 0.6 % (0.0-1.0); EOS # 0.3 10*3/uL (0.0-0.4); EOS % 4.2 % (1.0-4.0); HEMOGLOBIN 10.1 g/dl (14.0-18.0); LYMPH # 1.7 10*3/uL (1.3-4.4); LYMPH % 24.3 % (27.0-41.0); MEAN CELL VOLUME 101.9 fl (80.0-94.0); MEAN CORPUSCULAR HGB 32.2 pg (27.0-31.0); MEAN CORPUSCULAR HGB CONC 31.6 g/dl (33.0-37.0); MEAN PLATELET VOLUME 10.4 fl (9.6-12.3); MONO # 0.7 10*3/uL (0.1-1.0); MONO % 10.2 % (3.0-9.0); NEUT # 4.2 10*3/uL (2.3-7.9); NEUT % 60.3 % (47.0-73.0); PLATELET COUNT AUTOMATED 110 10*3/uL (130-400); RED BLOOD COUNT 3.14 10*6/uL (4.50-5.90); RED CELL DISTRI WIDTH 17.1 % (0-14.5)
[2017-10-16 06:40] LABS: ALBUMIN 2.2 gm/dl (3.1-4.5); CREATININE 1.4 mg/dL (0.70-1.30); PHOSPHOROUS 1.7 mg/dL (2.5-4.9); POTASSIUM 3.5 mmol/L (3.5-5.1); TOTAL PROTEIN 5.4 gm/dL (6.4-8.2)
[2017-10-16 08:00] VITALS: BP 121/74
[2017-10-16 12:00] VITALS: BP 125/68
[2017-10-16 20:00] VITALS: BP 135/79
[2017-10-17] VITALS: BP 115/59
[2017-10-17 07:34] LABS: BUN 20 mg/dl (7-24); CHLORIDE 125 mmol/L (98-107); CREATININE 1.21 mg/dL (0.70-1.30); POTASSIUM 3.1 mmol/L (3.5-5.1); SODIUM 151 mmol/L (136-145)
[2017-10-17 07:59] VITALS: BP 134/75
[2017-10-17 12:00] VITALS: BP 119/73
[2017-10-17 16:00] VITALS: BP 131/74
[2017-10-17 20:00] VITALS: BP 120/53
[2017-10-18] VITALS: BP 120/64
[2017-10-18] MEDS ORDERED: CYMBALTA30 MG PO (01:22)
[2017-10-18] MEDS ORDERED: CYMBALTA60 MG PO (01:23)
[2017-10-18] MEDS ORDERED: BENGAY GREASELE57 GM T (01:28)
[2017-10-18] MEDS ORDERED: LIDOCAINE5 GM T (01:29)
[2017-10-18 07:05] LABS: BUN 14 mg/dl (7-24); CHLORIDE 121 mmol/L (98-107); POTASSIUM 2.9 mmol/L (3.5-5.1); SODIUM 147 mmol/L (136-145)
[2017-10-18 08:00] VITALS: BP 127/68
[2017-10-18 12:00] VITALS: BP 138/79
[2017-10-18 16:00] VITALS: BP 142/80
[2017-10-19] VITALS: BP 131/76
[2017-10-19 07:23] LABS: BUN 10 mg/dl (7-24); CHLORIDE 122 mmol/L (98-107); CREATININE 1.13 mg/dL (0.70-1.30); SODIUM 147 mmol/L (136-145)
[2017-10-19 08:00] VITALS: BP 122/71
[2017-10-19 12:00] VITALS: BP 148/65
[2017-10-19 20:00] VITALS: BP 112/64
[2017-10-20 08:00] VITALS: BP 90/68
[2017-10-20 08:20] LABS: BUN 7 mg/dl (7-24); CHLORIDE 122 mmol/L (98-107); CREATININE 1.11 mg/dL (0.70-1.30); POTASSIUM 3.6 mmol/L (3.5-5.1); SODIUM 147 mmol/L (136-145)
[2017-10-20 12:00] VITALS: BP 155/70
[2017-10-20 16:00] VITALS: BP 139/94
[2017-10-20 20:00] VITALS: BP 137/81
[2017-10-21 00:40] VITALS: BP 137/69
[2017-10-21 08:00] VITALS: BP 138/60
[2017-10-21 12:00] VITALS: BP 132/66
[2017-10-21 16:00] VITALS: BP 151/79
[2017-10-21 20:00] VITALS: BP 141/76
[2017-10-22 00:01] VITALS: BP 97/50
[2017-10-22 12:00] VITALS: BP 150/77
[2017-10-22 16:00] VITALS: BP 132/79
[2017-10-22 20:00] VITALS: BP 128/71
[2017-10-23] VITALS: BP 142/75
[2017-10-23 08:00] VITALS: BP 122/67
[2017-10-23 12:00] VITALS: BP 117/51
[2017-10-23 16:00] VITALS: BP 128/74
[2017-10-23 20:00] VITALS: BP 127/68
[2017-10-24] VITALS: BP 116/62
[2017-10-24 08:00] VITALS: BP 130/63
[2017-10-24 12:00] VITALS: BP 128/66
[2017-10-24 16:00] VITALS: BP 125/65
[2017-10-24 20:00] VITALS: BP 112/59
[2017-10-25] VITALS (8 sets, daily range): BP systolic 95–148; BP diastolic 54–71
[2017-10-25 08:54] LABS: BASO % 0.5 % (0.0-1.0); EOS # 0.4 10*3/uL (0.0-0.4); EOS % 5.8 % (1.0-4.0); HEMATOCRIT 30.9 % (42.0-52.0); HEMOGLOBIN 10.2 g/dl (14.0-18.0); LYMPH # 1.5 10*3/uL (1.3-4.4); LYMPH % 24.9 % (27.0-41.0); MEAN CELL VOLUME 99.7 fl (80.0-94.0); MEAN CORPUSCULAR HGB 32.9 pg (27.0-31.0); MEAN PLATELET VOLUME 10.3 fl (9.6-12.3); MONO # 0.9 10*3/uL (0.1-1.0); MONO % 14.8 % (3.0-9.0); NEUT # 3.2 10*3/uL (2.3-7.9); NEUT % 53.7 % (47.0-73.0); PLATELET COUNT AUTOMATED 132 10*3/uL (130-400); RED CELL DISTRI WIDTH 15.8 % (0-14.5)
[2017-10-25 09:09] LABS: ALBUMIN 1.9 gm/dl (3.1-4.5); ALKALINE PHOSPHATASE 126 U/L (45-117); BUN 6 mg/dl (7-24); CHLORIDE 115 mmol/L (98-107); CREATININE 1.07 mg/dL (0.70-1.30); POTASSIUM 2.8 mmol/L (3.5-5.1); SGOT/AST 14 IU/L (3-35); SGPT/ALT 25 U/L (12-78); SODIUM 142 mmol/L (136-145); TOTAL PROTEIN 5.1 gm/dL (6.4-8.2)
[2017-10-26] VITALS: BP 122/84
[2017-10-26 07:45] LABS: BASO % 0.3 % (0.0-1.0); EOS # 0.3 10*3/uL (0.0-0.4); EOS % 5.9 % (1.0-4.0); HEMATOCRIT 29.3 % (42.0-52.0); HEMOGLOBIN 9.4 g/dl (14.0-18.0); LYMPH # 1.5 10*3/uL (1.3-4.4); LYMPH % 25.7 % (27.0-41.0); MEAN CELL VOLUME 99.3 fl (80.0-94.0); MEAN CORPUSCULAR HGB 31.9 pg (27.0-31.0); MEAN CORPUSCULAR HGB CONC 32.1 g/dl (33.0-37.0); MEAN PLATELET VOLUME 10.1 fl (9.6-12.3); MONO # 0.9 10*3/uL (0.1-1.0); MONO % 14.9 % (3.0-9.0); NEUT % 52.9 % (47.0-73.0); PLATELET COUNT AUTOMATED 145 10*3/uL (130-400); RED BLOOD COUNT 2.95 10*6/uL (4.50-5.90); RED CELL DISTRI WIDTH 15.2 % (0-14.5); WHITE BLOOD COUNT 5.8 10*3/uL (4.8-10.8)
[2017-10-26 08:00] VITALS: BP 124/62
[2017-10-26 08:00] LABS: BUN 5 mg/dl (7-24); CHLORIDE 114 mmol/L (98-107); CREATININE 1.07 mg/dL (0.70-1.30); POTASSIUM 2.8 mmol/L (3.5-5.1); SODIUM 142 mmol/L (136-145)
[2017-10-26 12:00] VITALS: BP 106/63
[2017-10-26 15:09] LABS: BUN 5 mg/dl (7-24); CHLORIDE 114 mmol/L (98-107); CREATININE 1.11 mg/dL (0.70-1.30); POTASSIUM 3.7 mmol/L (3.5-5.1); SODIUM 143 mmol/L (136-145)
[2017-10-26] MEDS ORDERED: K-Lyte/Cl25 MEQ PO (15:28)
== END 2017-10-26 16:34 | disposition other institution (70) | DRG 871 ==
LOC: ED 18:55 → EDHOLD 21:12 → 5E 21:12
PROVIDERS: Emergency Medicine; Internal Medicine; Student in an Organized Health Care Education/Training Program
PROC: 0DH63UZ Insertion of Feeding Device into Stomach, Percutaneous Approach (ICD-10-PCS; principal; 2017-10-25)
DX: A41.9 Sepsis, unspecified organism (principal); G93.41 Metabolic encephalopathy; N17.0 Acute kidney failure with tubular necrosis; E43 Unspecified severe protein-calorie malnutrition; E87.0 Hyperosmolality and hypernatremia; I50.32 Chronic diastolic (congestive) heart failure; I13.0 Hypertensive heart and chronic kidney disease with heart failure and stage 1 through stage 4 chronic kidney disease, or unspecified chronic kidney disease; E87.8 Other disorders of electrolyte and fluid balance, not elsewhere classified; G30.9 Alzheimer's disease, unspecified; F02.80 Dementia in other diseases classified elsewhere, unspecified severity, without behavioral disturbance, psychotic disturbance, mood disturbance, and anxiety; N39.0 Urinary tract infection, site not specified; F33.9 Major depressive disorder, recurrent, unspecified; K29.70 Gastritis, unspecified, without bleeding; Z66 Do not resuscitate; E66.9 Obesity, unspecified; K57.90 Diverticulosis of intestine, part unspecified, without perforation or abscess without bleeding; Z51.5 Encounter for palliative care; N18.3 Chronic kidney disease, stage 3 (moderate); D72.810 Lymphocytopenia; D53.9 Nutritional anemia, unspecified; R73.9 Hyperglycemia, unspecified; N40.0 Benign prostatic hyperplasia without lower urinary tract symptoms; H54.7 Unspecified visual loss; F41.1 Generalized anxiety disorder; E83.41 Hypermagnesemia; E87.6 Hypokalemia; Z88.0 Allergy status to penicillin; Z87.891 Personal history of nicotine dependence; Z83.6 Family history of other diseases of the respiratory system; Z82.49 Family history of ischemic heart disease and other diseases of the circulatory system; Z68.23 Body mass index [BMI] 23.0-23.9, adult; Z79.899 Other long term (current) drug therapy

== ENCOUNTER 2017-11-03 00:47 | Emergency (ER) | payer MEDICARE ==
[~2017-11-03] VITALS: Ht 185.4 cm; Wt 93.0 kg
[~2017-11-03 00:47] MED LIST changes: +AZULFIDINE ENT500 MG PO; +BENGAY GREASELE57 GM T; +CYMBALTA30 MG PO; +CYMBALTA60 MG PO; +DEPAKOTE250 MG PO; +EXELON1 EACH PO; +HYD T; +K-Lyte/Cl25 MEQ PO; +LIDOCAINE5 GM T; +LOMOTIL 2.5-0.1 EACH PO; +MEGACE 40400 MG/10 PO; +METAMUCIL0.52 G1 PO; +METOPROLOL SUCC50 M1 PO; +MOM30 M1 PO; +NATURE'S BLEND F1 MG PO; +NEURONTIN100 MG PO; +NON-ASPIRIN325 MG PO; +RIVASTIGMINE T4.5 M1 PO; +SENNA8.6 MG PO; +[UNRECOGNIZED DRUG - OTHER] T
== END 2017-11-03 02:33 | disposition other institution (70) ==
LOC: ED 00:47
DX: K94.23 Gastrostomy malfunction (principal); Z87.891 Personal history of nicotine dependence; Z98.890 Other specified postprocedural states; Z79.899 Other long term (current) drug therapy; Z88.0 Allergy status to penicillin

== ENCOUNTER 2017-12-22 12:22 | Inpatient (IN) | payer MEDICARE ==
[2017-12-22] VITALS (7 sets, daily range): BP systolic 89–114; BP diastolic 45–65
[~2017-12-22] VITALS: Ht 188 cm; Wt 89.5 kg
--- NOTE | ~2017-12-22 | CON ---
[place], [place] REPORT OF CONSULTATION NAME: CHIKI MARR UNIT #: [id number] ROOM: 519 DOCTOR: NIKIA MELGARDIMITRIOS BIRTHDATE: [birth year] DOS: 12/22/2017 HISTORY OF PRESENT ILLNESS: This is an 87-year-old patient who presented from alf to the Emergency Room with a broken PEG tube and Dr. Lalit Morrison and I have discussed the case and the decision was to keep the patient until the PEG tube is replaced due to the fact that the patient has renal failure and in need of hydration as well and hyperkalemia of 6.0, in need of Kayexalate management. At the time of admission, white blood cell was 5.7, H and H of 9 and 32. Urinalysis was unremarkable. Comprehensive metabolic panel, BUN and creatinine 61 and 2.2, GFR 34, potassium 6.0, alkaline phosphatase 155. His basic metabolic was redrawn and elevations again reapproved in comparison. PAST MEDICAL HISTORY: Associated with dementia, renal failure, BPH, anemia, blindness, congestive heart failure, depression, hypertension, dysphagia, PEG tube-fed. PAST SURGICAL HISTORY: Chronic back management and PEG tube placement. SOCIAL HISTORY: Passive smoker. Nonalcohol consumer. FAMILY HISTORY: Noncontributory. ALLERGIES: PENICILLIN. MEDICATIONS: List has been reviewed. REVIEW OF SYSTEMS: Cannot be in detail obtained from him. PHYSICAL EXAMINATION: GENERAL: A frail patient. VITAL SIGNS: Stable. HEENT: Benign, blind by history. No ophthalmoscopic examination was done. NECK: Supple. No thyromegaly. CHEST: Symmetric anatomy, equal expansion. No wheeze, no rhonchi. HEART: Normal sinus rhythm. No gallop, no murmur. ABDOMEN: Soft. No hepato-organomegaly. Bowel sounds present. No pulsatile mass. A malfunctioning PEG tube in place. EXTREMITIES: No cyanosis, no pedal edema. NEUROLOGIC: Slow, alert. IMPRESSION: At this stage, anterior abdominal wall reassessed and aseptically prepped, the PEG was removed and a new gastrostomy feeding device ELIDIA type size 20 was introduced into the existing ostomy, inflated with 15 mL of normal saline. Anchors placed, additional anchors added to ensure stabilization of the ELIDIA tube, patency checked. The patient tolerated the procedure well. IMPRESSION: Malfunctioning PEG tube, status post removal, replacement of PEG tube with gastrostomy feeding device of dysphagia, blindness, dementia. PLAN AND DISCUSSION: Furthermore, we are noticing that the patient has [place], [place] REPORT OF CONSULTATION NAME: CHIKI MARR UNIT #: [id number] ROOM: [facility] DOCTOR: NIKIA MELGAR,DIMITRIOS BIRTHDATE: [birth year] hyperkalemia of 6.0. Therefore, a dose of Kayexalate is going to be given and the feeding solution is going to change to Nepro with a lesser potassium concentration appropriate for his management. Water flush at 30 mL per hour was also recommended. Follow up with a basic metabolic panel in a.m. DIMITRIOS MONTEJO MD CM:CONSTR:REPORT OF CONSULTATION 1812 01/03/18 1421 interface
--- NOTE | ~2017-12-22 | CON ---
[place], [place] REPORT OF CONSULTATION NAME: CHIKI MARR UNIT #: [id number] ROOM: 519 DOCTOR: CHIKI BRIONES MD BIRTHDATE: [birth year] DOS: 12/28/2017 PSYCHIATRIC CONSULTATION CHIEF COMPLAINT: "Yes." HISTORY OF PRESENT ILLNESS: This is an 87-year-old white male who resides at [facility] who was admitted due to a malfunction in his PEG tube. The patient has significant dementia and behavioral issues secondary to it. Since his stay here in the hospital, he has been both verbally and physically aggressive. He is resistive and combative with hands on care and has been striking out requiring frequent p.r.n. interventions. PAST MEDICAL HISTORY: Remarkable for anemia of chronic disease, chronic blindness, benign prostatic hypertrophy, chronic renal failure, stage 3, congestive heart failure, hypertension, depression, dementia. SOCIAL HISTORY: He is a former smoker. He does not use illicit drugs and currently does not consume alcohol. ALLERGIES: LISTED TO PENICILLIN. MENTAL STATUS: Limited due to his confusion. He would respond oftentimes very disjointed and fragmented, inappropriate responses such as yes to a question that was not a yes or no answer. He was not agitated though and tried to engage with me even though he was very confused. There was no maria alejandra, hypomania or psychotic symptoms seen and memory is very poor. DIAGNOSIS: Alzheimer dementia with behavioral disturbances. PLAN: I will start him on Exelon patch 4.6 mg a day to try to impact positively on ADLs, behavior and cognition. His valproic acid level is subtherapeutic at 49.5, so I will go ahead and increase it to 1500 mg a day given 500 mg t.i.d. I will also add some straight Vistaril 25 mg t.i.d. to try to get ahead of his agitation. I would consider adjusting the Exelon patch as needed and as tolerated and consider also augmenting with Namenda. CHIKI BRIONES MD CM:CONSTR:REPORT OF CONSULTATION 0920 12/28/17 1833 interface
[~2017-12-22 12:22] MED LIST changes: +ALKA-SELTZER G1 EACH PEG; +DEPAKOTE250 MG PEG; -DEPAKOTE250 MG PO; +FLOMAX0.4 MG PEG; +LOMOTIL 2.5-0.1 EACH PEG; -LOMOTIL 2.5-0.1 EACH PO; +MELATONIN10 M2 PEG; +METAMUCIL0.52 G1 PEG; -METAMUCIL0.52 G1 PO; +MOM30 M1 PEG; -MOM30 M1 PO; +NATURE'S BLEND F1 MG PEG; -NATURE'S BLEND F1 MG PO; +NEURONTIN100 MG PEG; -NEURONTIN100 MG PO; +NON-ASPIRIN325 MG PEG; -NON-ASPIRIN325 MG PO; +PAIN RELIEVER325 MG PEG; +PROSOURCE PLUS887 ML PEG; +PROTONIX20 MG PEG; +SENNA8.6 MG PEG; -SENNA8.6 MG PO; +SODIUM BICARBO650 MG PEG
[2017-12-22] MEDS ORDERED: MIRTAZAPINE15 M2 PEG (20:12)
[2017-12-22] MEDS ORDERED: OCUVITE WITH L1 EACH PEG (20:13)
[2017-12-23] VITALS: BP 115/56
[2017-12-23 07:06] LABS: BASO % 0.4 % (0.0-1.0); EOS # 0.4 10*3/uL (0.0-0.4); EOS % 6.8 % (1.0-4.0); HEMATOCRIT 35.1 % (42.0-52.0); LYMPH # 0.7 10*3/uL (1.3-4.4); MEAN CORPUSCULAR HGB CONC 31.3 g/dl (33.0-37.0); MEAN PLATELET VOLUME 11.1 fl (9.6-12.3); MONO # 0.6 10*3/uL (0.1-1.0); MONO % 11.3 % (3.0-9.0); NEUT # 3.6 10*3/uL (2.3-7.9); NEUT % 67.7 % (47.0-73.0); PLATELET COUNT AUTOMATED 135 10*3/uL (130-400); RED BLOOD COUNT 3.44 10*6/uL (4.50-5.90); RED CELL DISTRI WIDTH 13.5 % (0-14.5); WHITE BLOOD COUNT 5.3 10*3/uL (4.8-10.8)
[2017-12-23 07:42] LABS: ALBUMIN 2.6 gm/dl (3.1-4.5); CREATININE 1.94 mg/dL (0.70-1.30); PHOSPHOROUS 3.6 mg/dL (2.5-4.9); POTASSIUM 5.5 mmol/L (3.5-5.1); TOTAL PROTEIN 7.1 gm/dL (6.4-8.2)
[2017-12-23 07:43] LABS: ACT PARTIAL THROMBO TIME 24.6 SECONDS (20.8-31.5)
[2017-12-23 07:48] LABS: VALPROIC ACID (DEPAKENE) 49.5 ug/ml (50-100)
[2017-12-23 08:00] VITALS: BP 127/65
[2017-12-23 12:00] VITALS: BP 150/73
[2017-12-23 16:00] VITALS: BP 155/68
[2017-12-23 20:00] VITALS: BP 153/64
[2017-12-24] VITALS: BP 153/64
[2017-12-24 05:00] VITALS: BP 134/59
[2017-12-24 06:39] LABS: HEMATOCRIT 36.4 % (42.0-52.0); MEAN CELL VOLUME 103.7 fl (80.0-94.0); MEAN CORPUSCULAR HGB 31.3 pg (27.0-31.0); MEAN CORPUSCULAR HGB CONC 30.2 g/dl (33.0-37.0); MEAN PLATELET VOLUME 10.9 fl (9.6-12.3); NUCLEATED RED BLOOD CELL 0.1 % (0.0-0.0); PLATELET COUNT AUTOMATED 124 10*3/uL (130-400); RED BLOOD COUNT 3.51 10*6/uL (4.50-5.90); RED CELL DISTRI WIDTH 13.8 % (0-14.5); WHITE BLOOD COUNT 16.2 10*3/uL (4.8-10.8)
[2017-12-24 07:08] LABS: ALBUMIN 2.7 gm/dl (3.1-4.5); CREATININE 2.06 mg/dL (0.70-1.30); POTASSIUM 5.6 mmol/L (3.5-5.1); TOTAL PROTEIN 7.5 gm/dL (6.4-8.2)
[2017-12-24 07:31] LABS: PLATELET SUFFICIENCY LOW (NORMAL); TOTAL CELLS COUNTED 100 #CELLS; TOXIC GRANULATION SLIGHT
[2017-12-24 08:00] VITALS: BP 135/50
[2017-12-24 12:00] VITALS: BP 116/67
[2017-12-24 16:00] VITALS: BP 105/56
[2017-12-24 16:12] LABS: BILIRUBIN NEGATIVE (NEGATIVE); BLOOD NEGATIVE (NEGATIVE); CLARITY CLEAR (CLEAR); COLOR YELLOW (YELLOW); GLUCOSE NEGATIVE (NEGATIVE); KETONE NEGATIVE (NEGATIVE); LEUKO ESTERASE NEGATIVE (NEGATIVE); NITRITE NEGATIVE (NEGATIVE); SPECIFIC GRAVITY 1.015 (1.005-1.030); UROBILINOGEN 0.2 E.U./dl (0.2-1.0)
[2017-12-24 20:00] VITALS: BP 90/42
[2017-12-25] VITALS: BP 90/52
[2017-12-25 07:06] LABS: BASO % 0.3 % (0.0-1.0); EOS # 0.1 10*3/uL (0.0-0.4); EOS % 1.9 % (1.0-4.0); HEMATOCRIT 34.4 % (42.0-52.0); HEMOGLOBIN 10.4 g/dl (14.0-18.0); LYMPH # 0.5 10*3/uL (1.3-4.4); LYMPH % 6.8 % (27.0-41.0); MEAN CELL VOLUME 106.5 fl (80.0-94.0); MEAN CORPUSCULAR HGB 32.2 pg (27.0-31.0); MEAN CORPUSCULAR HGB CONC 30.2 g/dl (33.0-37.0); MEAN PLATELET VOLUME 11.1 fl (9.6-12.3); MONO # 0.9 10*3/uL (0.1-1.0); MONO % 12.8 % (3.0-9.0); NEUT # 5.6 10*3/uL (2.3-7.9); NEUT % 77.5 % (47.0-73.0); RED BLOOD COUNT 3.23 10*6/uL (4.50-5.90); RED CELL DISTRI WIDTH 14.2 % (0-14.5); WHITE BLOOD COUNT 7.3 10*3/uL (4.8-10.8)
[2017-12-25 07:08] LABS: PLATELET COUNT AUTOMATED 81 10*3/uL (130-400)
[2017-12-25 07:24] LABS: ALBUMIN 2.3 gm/dl (3.1-4.5); CREATININE 2.23 mg/dL (0.70-1.30); POTASSIUM 5.3 mmol/L (3.5-5.1); TOTAL PROTEIN 6.9 gm/dL (6.4-8.2)
[2017-12-25 12:00] VITALS: BP 101/44
[2017-12-25 16:00] VITALS: BP 96/52
[2017-12-25 20:00] VITALS: BP 108/54
[2017-12-25 20:15] VITALS: BP 100/54
[2017-12-26] VITALS: BP 103/49
[2017-12-26 08:00] VITALS: BP 96/47
[2017-12-26 08:35] LABS: BASO % 0.2 % (0.0-1.0); EOS # 0.3 10*3/uL (0.0-0.4); HEMATOCRIT 30.7 % (42.0-52.0); HEMOGLOBIN 9.4 g/dl (14.0-18.0); LYMPH # 0.5 10*3/uL (1.3-4.4); LYMPH % 8.7 % (27.0-41.0); MEAN CORPUSCULAR HGB 31.3 pg (27.0-31.0); MEAN CORPUSCULAR HGB CONC 30.6 g/dl (33.0-37.0); MEAN PLATELET VOLUME 11.1 fl (9.6-12.3); MONO # 0.8 10*3/uL (0.1-1.0); NEUT # 4.3 10*3/uL (2.3-7.9); NEUT % 71.6 % (47.0-73.0); PLATELET COUNT AUTOMATED 87 10*3/uL (130-400); RED CELL DISTRI WIDTH 14.2 % (0-14.5)
[2017-12-26 08:37] LABS: MEAN CELL VOLUME 102.3 fl (80.0-94.0)
[2017-12-26 08:48] LABS: CREATININE 1.95 mg/dL (0.70-1.30); POTASSIUM 5.2 mmol/L (3.5-5.1)
[2017-12-26 12:00] VITALS: BP 100/54
[2017-12-26 16:00] VITALS: BP 122/56
[2017-12-26 20:00] VITALS: BP 128/62
[2017-12-27 07:36] LABS: BASO % 0.2 % (0.0-1.0); EOS # 0.1 10*3/uL (0.0-0.4); EOS % 2.8 % (1.0-4.0); HEMATOCRIT 31.9 % (42.0-52.0); HEMOGLOBIN 9.6 g/dl (14.0-18.0); LYMPH # 0.5 10*3/uL (1.3-4.4); LYMPH % 10.3 % (27.0-41.0); MEAN CELL VOLUME 102.9 fl (80.0-94.0); MEAN CORPUSCULAR HGB CONC 30.1 g/dl (33.0-37.0); MEAN PLATELET VOLUME 10.9 fl (9.6-12.3); MONO # 0.7 10*3/uL (0.1-1.0); MONO % 13.6 % (3.0-9.0); NEUT # 3.6 10*3/uL (2.3-7.9); NEUT % 72.3 % (47.0-73.0); PLATELET COUNT AUTOMATED 92 10*3/uL (130-400); RED CELL DISTRI WIDTH 14.3 % (0-14.5); WHITE BLOOD COUNT 4.9 10*3/uL (4.8-10.8)
[2017-12-27 08:00] VITALS: BP 187/63
[2017-12-27 08:02] LABS: ALBUMIN 2.1 gm/dl (3.1-4.5); CREATININE 1.77 mg/dL (0.70-1.30); PHOSPHOROUS 2.1 mg/dL (2.5-4.9); POTASSIUM 4.7 mmol/L (3.5-5.1); TOTAL PROTEIN 6.9 gm/dL (6.4-8.2)
[2017-12-27 12:00] VITALS: BP 151/66
[2017-12-27 16:00] VITALS: BP 143/61
[2017-12-27 20:00] VITALS: BP 138/57
[2017-12-28] VITALS: BP 122/57
[2017-12-28 07:21] LABS: BASO % 0.2 % (0.0-1.0); EOS # 0.4 10*3/uL (0.0-0.4); EOS % 7.4 % (1.0-4.0); HEMATOCRIT 34.6 % (42.0-52.0); HEMOGLOBIN 10.2 g/dl (14.0-18.0); LYMPH # 0.9 10*3/uL (1.3-4.4); MEAN CELL VOLUME 105.8 fl (80.0-94.0); MEAN CORPUSCULAR HGB 31.2 pg (27.0-31.0); MEAN CORPUSCULAR HGB CONC 29.5 g/dl (33.0-37.0); MEAN PLATELET VOLUME 10.6 fl (9.6-12.3); MONO # 0.5 10*3/uL (0.1-1.0); NEUT # 3.2 10*3/uL (2.3-7.9); PLATELET COUNT AUTOMATED 109 10*3/uL (130-400); RED BLOOD COUNT 3.27 10*6/uL (4.50-5.90); RED CELL DISTRI WIDTH 14.3 % (0-14.5)
[2017-12-28 07:38] LABS: CREATININE 1.73 mg/dL (0.70-1.30); POTASSIUM 4.4 mmol/L (3.5-5.1)
[2017-12-28 08:00] VITALS: BP 134/96
[2017-12-28 12:00] VITALS: BP 142/73
[2017-12-28 16:00] VITALS: BP 143/73
[2017-12-28 20:00] VITALS: BP 119/52
[2017-12-29] VITALS: BP 143/59
[2017-12-29] MEDS ORDERED: XYLOCAINE 5%35.44 GM T (04:31)
[2017-12-29] MEDS ORDERED: METAMUCIL0.4 G1 PO (04:36)
[2017-12-29] MEDS ORDERED: OMEPRAZOLE D/R20 MG PEG (04:41)
[2017-12-29] MEDS ORDERED: SENNOSIDES-DOC1 EACH PEG (04:42)
[2017-12-29] MEDS ORDERED: DIVALPROEX SOD125 M1 PEG (04:45)
[2017-12-29] MEDS ORDERED: ALBUTEROL2.5 MG/0.5 INH (04:50)
[2017-12-29] MEDS ORDERED: TYLENOL325 M1 PEG (04:52)
[2017-12-29] MEDS ORDERED: KIONEX 1515 GM/60 M PEG (04:58)
== END 2017-12-29 05:58 | disposition expired | DRG 393 ==
LOC: ED 12:22 → 5E 13:30 → EDHOLD 13:30 → 5E 13:53
PROVIDERS: Family Medicine; Internal Medicine
PROC: 0D20XUZ Change Feeding Device in Upper Intestinal Tract, External Approach (ICD-10-PCS; principal; 2017-12-22)
DX: K94.23 Gastrostomy malfunction (principal); J18.1 Lobar pneumonia, unspecified organism; N17.0 Acute kidney failure with tubular necrosis; J96.00 Acute respiratory failure, unspecified whether with hypoxia or hypercapnia; E87.0 Hyperosmolality and hypernatremia; E87.5 Hyperkalemia; D69.6 Thrombocytopenia, unspecified; I13.0 Hypertensive heart and chronic kidney disease with heart failure and stage 1 through stage 4 chronic kidney disease, or unspecified chronic kidney disease; I50.32 Chronic diastolic (congestive) heart failure; F02.81 Dementia in other diseases classified elsewhere, unspecified severity, with behavioral disturbance; Z66 Do not resuscitate; Z51.5 Encounter for palliative care; F41.1 Generalized anxiety disorder; E87.8 Other disorders of electrolyte and fluid balance, not elsewhere classified; H91.90 Unspecified hearing loss, unspecified ear; E66.3 Overweight; G30.9 Alzheimer's disease, unspecified; D63.1 Anemia in chronic kidney disease; N18.3 Chronic kidney disease, stage 3 (moderate); R00.0 Tachycardia, unspecified; N40.0 Benign prostatic hyperplasia without lower urinary tract symptoms; F32.9 Major depressive disorder, single episode, unspecified; H54.7 Unspecified visual loss; Z88.0 Allergy status to penicillin; Z79.899 Other long term (current) drug therapy; Z87.01 Personal history of pneumonia (recurrent); Z87.440 Personal history of urinary (tract) infections; Z82.49 Family history of ischemic heart disease and other diseases of the circulatory system; Z83.6 Family history of other diseases of the respiratory system; Z68.24 Body mass index [BMI] 24.0-24.9, adult